=== PATIENT | female | born 1960 | race Caucasian/White ===

== ENCOUNTER 2022-04-03 07:43 | Inpatient (IN) | payer OTHER ==
[~2022-04-03] VITALS: Ht 167.6 cm; Wt 54.0 kg
[~2022-04-03 07:43] MED LIST: ASPI-1450 PO; ATOR20TA86 PO; OLAN5TAB52 PO; SERT-158 PO
[2022-04-03 08:42] LABS: BASOPHILS % (AUTO) 0.5 % (0.0-2.0); EOSINOPHILS % (AUTO) 2.9 % (1.0-6.0); HEMATOCRIT 41.5 % (36-46); HEMOGLOBIN 14.1 g/dL (12.0-16.0); LYMPHOCYTES # (AUTO) 1.9 K/uL (1.0-4.8); MEAN CORPUSCULAR HEMOGLOBIN 30.5 pg (26.0-34.0); MEAN CORPUSCULAR HGB CONC 33.9 G/dL (31.0-37.0); MEAN CORPUSCULAR VOLUME 90 fL (80-100); MONOCYTES # (AUTO) 0.4 K/uL (0.1-1.0); MONOCYTES % (AUTO) 6.7 % (2.0-9.0); NEUTROPHILS # (AUTO) 3.8 K/uL (1.8-7.7); NEUTROPHILS % (AUTO) 59.9 % (40.0-70.0); PLATELET COUNT (AUTO) 297 K/uL (150-450); RED CELL DISTRIBUTION WIDTH 13.9 % (11.5-14.5)
[2022-04-03 08:53] LABS: ANION GAP 4 mmol/L (8-16); CALCIUM, TOTAL 9.5 mg/dL (8.8-10.5); CARBON DIOXIDE 29 mmol/L (22-29); CHLORIDE 103 mmol/L (98-107); CREATININE 0.66 mg/dL (0.60-1.30); GLOMERULAR FILTR. RATE CALC > 60 mL/min (>60); GLUCOSE,RANDOM 109 mg/dL (70-110); POTASSIUM 4.1 mmol/L (3.5-5.1); SODIUM SERUM 136 mmol/L (136-145); UREA NITROGEN, BLOOD 24 mg/dL (7-18)
[2022-04-03 08:55] LABS: PROTHROMBIN TIME 10.5 SEC (9.4-11.6)
[2022-04-03 09:01] LABS: B-TYPE NATRIURETIC PEPTIDE 7 pg/mL (0-100)
[2022-04-03 09:18] LABS: ALANINE AMINOTRANSFERASE 25 U/L (12-78); ALBUMIN 3.8 g/dL (3.4-5.0); ALKALINE PHOSPHATASE 88 U/L (46-116); ASPARTATE AMINOTRANSFERASE 13 U/L (15-37); BILIRUBIN,TOTAL 0.3 mg/dL (0.1-1.0); CREATINE KINASE, TOTAL ONLY 102 U/L (26-192); THYROID STIMULATING HORMONE 2.88 uIU/mL (0.36-3.74); TOTAL PROTEIN, SERUM 7.4 g/dL (6.4-8.2)
[2022-04-03 09:29] LABS: COVID AG,FIA SOURCE NASAL SWAB
[2022-04-03 12:25] LABS: APPEARANCE,URINE CLEAR (CLEAR); BILIRUBIN,URINE NEGATIVE (NEGATIVE); GLUCOSE, URINE (UA) NEGATIVE (NEGATIVE); KETONES,URINE NEGATIVE (NEGATIVE); LEUKOCYTE ESTERASE ,URINE MODERATE (NEGATIVE); NITRATE,URINE NEGATIVE (NEGATIVE); OCCULT BLOOD,URINE NEGATIVE (NEGATIVE); PH,URINE 6.5 (5.0-8.0); PROTEIN,URINE TRACE mg/dL (NEGATIVE); SPECIFIC GRAVITIY, URINE 1.021 (1.003-1.030); UROBILINOGEN,URINE <=1.0 mg/dL (<=1.0)
[2022-04-03 13:23] LABS: RBC,URINE None Seen /HPF (0-2); SQUAMOUS EPITHELIAL CELL,UR Few /LPF (None Seen)
[2022-04-03 13:24] LABS: BACTERIA,URINE Few /HPF (None Seen)
[2022-04-03] MEDS ORDERED: CefTRIAXone 1 GM/DEXTROSE 50 ML IV ONE (14:15)
[2022-04-03] MEDS ORDERED: INFLUENZA VIRUS VACCINE QVS 2022-23 (6MO+)/PF 60 MCG/0.5 ML SYRINGE IM. ONE (16:30)
[2022-04-03 16:53] VITALS: BP 103/64
[2022-04-03] MEDS ORDERED: 0.9% SODIUM CHLORIDE 10 ML SYRINGE IVP PRN (20:15)
[2022-04-03] MEDS ORDERED: ONDANSETRON HCL 4 MG/2 ML VIAL IVP PRN (20:15)
[2022-04-03] MEDS ORDERED: OxyCODONE HCL/ACETAMINOPHEN 5-325 MG TABLET PO PRN ×2 (20:15)
[2022-04-03 20:45] VITALS: BP 109/63
[2022-04-03] MEDS: PANTOPRAZOLE SODIUM 40 MG/VIAL IVP SCH (21:03)
[2022-04-03] MEDS: SODIUM CHLORIDE 0.9% 1,000 ML IV SCH (21:03)
[2022-04-03] MEDS: ASPIRIN 81 MG CHEWABLE TABLET PO SCH (21:04)
[2022-04-03] MEDS: SERTRALINE HCL 50 MG TABLET PO SCH (21:05)
[2022-04-03] MEDS: ATORVASTATIN CALCIUM 20 MG TABLET PO SCH (21:09)
[2022-04-03] MEDS: OLANZapine 5 MG TABLET PO SCH (21:09)
[2022-04-03] MEDS: DOCUSATE SODIUM 100 MG CAPSULE PO SCH (21:10)
[2022-04-03] MEDS: CefTRIAXone 1 GM/DEXTROSE 50 ML IV SCH (21:11)
[2022-04-04 06:06] VITALS: BP 99/67
[2022-04-04 08:29] LABS: BASOPHILS % (AUTO) 0.5 % (0.0-2.0); EOSINOPHILS % (AUTO) 3.3 % (1.0-6.0); HEMATOCRIT 41.4 % (36-46); HEMOGLOBIN 13.8 g/dL (12.0-16.0); LYMPHOCYTES # (AUTO) 1.9 K/uL (1.0-4.8); LYMPHOCYTES % (AUTO) 36.1 % (22.0-44.0); MEAN CORPUSCULAR HEMOGLOBIN 30.1 pg (26.0-34.0); MEAN CORPUSCULAR HGB CONC 33.3 G/dL (31.0-37.0); MEAN CORPUSCULAR VOLUME 91 fL (80-100); MONOCYTES # (AUTO) 0.4 K/uL (0.1-1.0); MONOCYTES % (AUTO) 7.9 % (2.0-9.0); NEUTROPHILS # (AUTO) 2.8 K/uL (1.8-7.7); NEUTROPHILS % (AUTO) 52.2 % (40.0-70.0); PLATELET COUNT (AUTO) 265 K/uL (150-450); RED BLOOD CELL COUNT(AUTO) 4.58 MIL/uL (4.00-5.20)
[2022-04-04 08:37] LABS: ANION GAP 6 mmol/L (8-16); CARBON DIOXIDE 28 mmol/L (22-29); CHLORIDE 107 mmol/L (98-107); CREATININE 0.68 mg/dL (0.60-1.30); GLUCOSE,RANDOM 95 mg/dL (70-110); POTASSIUM 4.2 mmol/L (3.5-5.1); SODIUM SERUM 141 mmol/L (136-145); UREA NITROGEN, BLOOD 20 mg/dL (7-18)
[2022-04-04 08:38] LABS: GLOMERULAR FILTR. RATE CALC > 60 mL/min (>60)
[2022-04-04] MEDS: PANTOPRAZOLE SODIUM 40 MG/VIAL IVP SCH (09:40)
[2022-04-04] MEDS: SERTRALINE HCL 50 MG TABLET PO SCH (09:40)
[2022-04-04] MEDS: DOCUSATE SODIUM 100 MG CAPSULE PO SCH ×2 (09:40→20:00)
[2022-04-04] MEDS: ASPIRIN 81 MG CHEWABLE TABLET PO SCH (09:40)
[2022-04-04] MEDS: SODIUM CHLORIDE 0.9% 1,000 ML IV SCH ×2 (09:41→19:57)
[2022-04-04 15:27] VITALS: BP 96/52
[2022-04-04] MEDS: ATORVASTATIN CALCIUM 20 MG TABLET PO SCH (19:59)
[2022-04-04] MEDS: OLANZapine 5 MG TABLET PO SCH (19:59)
[2022-04-04 20:30] VITALS: BP 99/58
[2022-04-04] MEDS: CefTRIAXone 1 GM/DEXTROSE 50 ML IV SCH (21:00)
[2022-04-05 05:18] VITALS: BP 110/54
[2022-04-05] MEDS: SODIUM CHLORIDE 0.9% 1,000 ML IV SCH ×2 (07:27→16:38)
[2022-04-05 07:48] VITALS: BP 103/50
[2022-04-05] MEDS: DOCUSATE SODIUM 100 MG CAPSULE PO SCH ×2 (08:47→20:11)
[2022-04-05] MEDS: SERTRALINE HCL 50 MG TABLET PO SCH (08:47)
[2022-04-05] MEDS: ASPIRIN 81 MG CHEWABLE TABLET PO SCH (08:48)
[2022-04-05] MEDS: PANTOPRAZOLE SODIUM 40 MG/VIAL IVP SCH (08:48)
[2022-04-05 15:34] VITALS: BP 98/39
[2022-04-05 20:07] VITALS: BP 98/57
[2022-04-05] MEDS: OLANZapine 5 MG TABLET PO SCH (20:11)
[2022-04-05] MEDS: ATORVASTATIN CALCIUM 40 MG TABLET PO SCH (20:11)
[2022-04-05] MEDS: CefTRIAXone 1 GM/DEXTROSE 50 ML IV SCH (20:12)
[2022-04-06] MEDS: SODIUM CHLORIDE 0.9% 1,000 ML IV SCH ×3 (03:21→23:56)
[2022-04-06 04:32] VITALS: BP 87/55
[2022-04-06 04:50] VITALS: BP 117/72
[2022-04-06] MEDS: DOCUSATE SODIUM 100 MG CAPSULE PO SCH ×2 (09:00→20:27)
[2022-04-06] MEDS: PANTOPRAZOLE SODIUM 40 MG/VIAL IVP SCH (09:59)
[2022-04-06] MEDS: ASPIRIN 81 MG CHEWABLE TABLET PO SCH (10:03)
[2022-04-06] MEDS: SERTRALINE HCL 50 MG TABLET PO SCH (10:03)
[2022-04-06 10:10] VITALS: BP 97/60
[2022-04-06 14:41] VITALS: BP 103/51
[2022-04-06 20:00] VITALS: BP 99/66
[2022-04-06] MEDS: ATORVASTATIN CALCIUM 40 MG TABLET PO SCH (20:27)
[2022-04-06] MEDS: ETHYL ALCOHOL 62% ANTISEPTIC NASAL SANITIZER 0.6 ML AMPUL NASAL SCH (20:27)
[2022-04-06] MEDS: OLANZapine 5 MG TABLET PO SCH (20:27)
[2022-04-06] MEDS: CefTRIAXone 1 GM/DEXTROSE 50 ML IV SCH (20:28)
[2022-04-07 05:00] VITALS: BP 96/56
[2022-04-07 07:34] VITALS: BP 105/50
[2022-04-07] MEDS: SODIUM CHLORIDE 0.9% 1,000 ML IV SCH ×2 (08:21→18:21)
[2022-04-07] MEDS: ASPIRIN 81 MG CHEWABLE TABLET PO SCH (08:21)
[2022-04-07] MEDS: DOCUSATE SODIUM 100 MG CAPSULE PO SCH ×2 (08:21→20:49)
[2022-04-07] MEDS: SERTRALINE HCL 50 MG TABLET PO SCH (08:21)
[2022-04-07] MEDS: PANTOPRAZOLE SODIUM 40 MG/VIAL IVP SCH (08:21)
[2022-04-07] MEDS: ETHYL ALCOHOL 62% ANTISEPTIC NASAL SANITIZER 0.6 ML AMPUL NASAL SCH ×2 (08:21→21:13)
[2022-04-07 12:00] VITALS: BP 110/58
[2022-04-07] MEDS ORDERED: GADOTERATE MEGLUMINE 10 MMOL/20 ML VIAL IVP ONE (15:47)
[2022-04-07 16:00] VITALS: BP 112/54
[2022-04-07 20:44] VITALS: BP 123/69
[2022-04-07] MEDS: OLANZapine 5 MG TABLET PO SCH (20:49)
[2022-04-07] MEDS: ATORVASTATIN CALCIUM 40 MG TABLET PO SCH (20:49)
[2022-04-07] MEDS: CefTRIAXone 1 GM/DEXTROSE 50 ML IV SCH (20:49)
[2022-04-08] MEDS: SODIUM CHLORIDE 0.9% 1,000 ML IV SCH ×2 (04:15→14:10)
[2022-04-08 05:09] VITALS: BP 99/57
[2022-04-08 07:56] VITALS: BP 84/54
[2022-04-08 08:15] VITALS: BP 109/53
[2022-04-08] MEDS: ETHYL ALCOHOL 62% ANTISEPTIC NASAL SANITIZER 0.6 ML AMPUL NASAL SCH ×2 (08:21→20:08)
[2022-04-08] MEDS: ASPIRIN 81 MG CHEWABLE TABLET PO SCH (08:22)
[2022-04-08] MEDS: DOCUSATE SODIUM 100 MG CAPSULE PO SCH ×2 (08:22→20:08)
[2022-04-08] MEDS: SERTRALINE HCL 50 MG TABLET PO SCH (08:22)
[2022-04-08] MEDS: PANTOPRAZOLE SODIUM 40 MG/VIAL IVP SCH (08:26)
[2022-04-08 13:14] LABS: COVID AG,FIA SOURCE NASAL SWAB
[2022-04-08 16:04] VITALS: BP 118/61
[2022-04-08 20:00] VITALS: BP 132/74
[2022-04-08] MEDS: CefTRIAXone 1 GM/DEXTROSE 50 ML IV SCH (20:04)
[2022-04-08] MEDS: ATORVASTATIN CALCIUM 40 MG TABLET PO SCH (20:04)
[2022-04-08] MEDS: OLANZapine 5 MG TABLET PO SCH (20:04)
[2022-04-09] MEDS: SODIUM CHLORIDE 0.9% 1,000 ML IV SCH ×2 (00:10→11:58)
[2022-04-09 04:30] VITALS: BP 119/58
[2022-04-09] MEDS: ASPIRIN 81 MG CHEWABLE TABLET PO SCH (08:06)
[2022-04-09] MEDS: DOCUSATE SODIUM 100 MG CAPSULE PO SCH (08:06)
[2022-04-09] MEDS: PANTOPRAZOLE SODIUM 40 MG/VIAL IVP SCH (08:06)
[2022-04-09] MEDS: SERTRALINE HCL 50 MG TABLET PO SCH (08:06)
[2022-04-09] MEDS: ETHYL ALCOHOL 62% ANTISEPTIC NASAL SANITIZER 0.6 ML AMPUL NASAL SCH (08:07)
[2022-04-09 09:03] VITALS: BP 110/77
[2022-04-09 15:28] VITALS: BP 121/62
[2022-04-09] MEDS ORDERED: DOCU-385 PO (15:57)
== END 2022-04-09 18:27 | disposition home health service (06) | DRG 463 ==
LOC: EMS 07:51 → 6S 15:20
PROVIDERS: ADMIT Internal Medicine; ATTEND Internal Medicine
DX: N39.0 Urinary tract infection, site not specified (principal); R45.851 Suicidal ideations; E44.0 Moderate protein-calorie malnutrition; F33.2 Major depressive disorder, recurrent severe without psychotic features; E86.0 Dehydration; I48.91 Unspecified atrial fibrillation; F41.9 Anxiety disorder, unspecified; R26.81 Unsteadiness on feet; R26.9 Unspecified abnormalities of gait and mobility; Z20.822 Contact with and (suspected) exposure to COVID-19; R29.6 Repeated falls; Z87.891 Personal history of nicotine dependence; Z79.899 Other long term (current) drug therapy; Z86.73 Personal history of transient ischemic attack (TIA), and cerebral infarction without residual deficits; Z88.2 Allergy status to sulfonamides; Z68.1 Body mass index [BMI] 19.9 or less, adult
CPT/HCPCS: 70450; 70553; 71045; 80048; 80053; 81001; 82550; 83880; 84443; 84484; 85025; 85610; 85730; 87081; 87086; 87186; 93005; 93306; 93308; 97116; 97162; 97530; 99285; C9113; G0480; J0696; J7030; 36415-L1; 36415-TC